=== PATIENT | male | born 2000 | race Caucasian/White ===

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

== ENCOUNTER 2021-07-25 10:02 | Emergency (ER) | payer OTHER ==
[~2021-07-25] VITALS: Ht 170.2 cm; Wt 68.9 kg
[2021-07-25 10:09] VITALS: BP 136/70
--- NOTE | 2021-07-25 10:16 | NUR ---
PATIENT AMBULATED TO BED 3, STEADY GAIT
--- NOTE | 2021-07-25 10:21 | NUR ---
DOCTOR CERON AT BEDSIDE
[2021-07-25] MEDS ORDERED: KETOROLAC 60 MG/2 ML VIAL IM ONE (10:25)
[2021-07-25] MEDS ORDERED: IBUP-2213 PO (10:34)
[2021-07-25] MEDS ORDERED: PRED20TA5 PO (10:34)
--- NOTE | 2021-07-25 10:42 | NUR ---
Patient discharged with v/s stable. Written and verbal after care instructions given and explained. Patient alert, oriented and verbalized understanding of instructions. Ambulatory with steady gait. All questions addressed prior to discharge. ID band removed. Patient advised to follow up with PMD. Rx of IBUPROFEN, PREDNISONE given. Patient educated on indication of medication including possible reaction and side effects. Opportunity to ask questions provided and answered.
[2021-07-25 10:44] VITALS: BP 136/70
== END 2021-07-25 10:42 | disposition home or self-care (01) ==
LOC: MED 10:02
DX: J02.9 Acute pharyngitis, unspecified (principal)
CPT/HCPCS: 96372; 99283; J1885

== ENCOUNTER 2022-02-11 12:12 | Emergency (ER) | payer OTHER ==
[~2022-02-11] VITALS: Ht 172.7 cm; Wt 70.3 kg
[~2022-02-11 12:12] MED LIST: IBUP-2213 PO; PRED20TA5 PO
[2022-02-11 12:26] VITALS: BP 117/80
--- NOTE | 2022-02-11 12:28 | NUR ---
PT TO BED 03 AMBULATORY
--- NOTE | 2022-02-11 12:30 | NUR ---
21/M WALKED IN C/O COUGH, SORE THROAT AND FEVER ONSET LAST NIGHT. DENIES SOB OR CHEST PAIN. PMH: DENIES
--- NOTE | 2022-02-11 12:46 | NUR ---
SWABS COLLECTED AND TAKEN TO LAB
[2022-02-11 12:48] VITALS: BP 113/76
[2022-02-11] MEDS ORDERED: KETOROLAC 30 MG/ML VIAL IM ONE (13:00)
--- NOTE | 2022-02-11 13:50 | NUR ---
STREP SWAB COLLECTED AND SENT TO LAB
[2022-02-11] MEDS ORDERED: TAM75 PO (14:20)
[2022-02-11] MEDS ORDERED: IBUP-1842 PO (14:21)
--- NOTE | 2022-02-11 14:25 | NUR ---
Patient discharged with v/s stable. Written and verbal after care instructions given and explained. Patient verbalized understanding. Ambulatory with steady gait. All questions addressed prior to discharge. Advised to follow up with PMD.
== END 2022-02-11 14:25 | disposition home or self-care (01) ==
LOC: MED 12:12
DX: J10.1 Influenza due to other identified influenza virus with other respiratory manifestations (principal); Z20.822 Contact with and (suspected) exposure to COVID-19; Z79.899 Other long term (current) drug therapy
CPT/HCPCS: 87081; 87426; 87804; 96372; 99283; J1885

== ENCOUNTER 2022-12-20 08:09 | Emergency (ER) | payer OTHER ==
[~2022-12-20] VITALS: Ht 170.2 cm; Wt 72.6 kg
[~2022-12-20 08:09] MED LIST changes: +IBUP-1842 PO; +TAM75 PO
[2022-12-20 08:23] VITALS: BP 162/77; PULSE 103; RESP 18; TEMP 100.1; O2SAT 96
[2022-12-20] MEDS ORDERED: KETOROLAC 60 MG/2 ML VIAL IM ONE (09:20)
[2022-12-20] MEDS ORDERED: PRED20TA5 PO (09:45)
[2022-12-20] MEDS ORDERED: IBUP-2213 PO (09:45)
== END 2022-12-20 09:58 | disposition home or self-care (01) ==
LOC: MED 08:09
DX: J02.9 Acute pharyngitis, unspecified (principal); H92.03 Otalgia, bilateral; R05.9 Cough, unspecified; Z79.899 Other long term (current) drug therapy; Z79.1 Long term (current) use of non-steroidal anti-inflammatories (NSAID)
CPT/HCPCS: 96372; 99283; J1885

== ENCOUNTER 2023-04-02 11:15 | Emergency (ER) | payer OTHER ==
[~2023-04-02] VITALS: Ht 170.2 cm; Wt 69.4 kg
[2023-04-02 12:08] VITALS: BP 116/72; PULSE 94; RESP 16; TEMP 98.6; O2SAT 95
[2023-04-02] MEDS ORDERED: PENICILLIN G BENZATHINE L-A 1.2 MU/2 ML SYR IM ONE (13:05)
[2023-04-02] MEDS ORDERED: KETOROLAC 60 MG/2 ML VIAL IM ONE (13:05)
[2023-04-02] MEDS ORDERED: PRED20TA5 PO (13:14)
[2023-04-02] MEDS ORDERED: IBUP-2213 PO (13:17)
[2023-04-02 13:28] VITALS: BP 121/72; PULSE 88; RESP 16; TEMP 98.6; O2SAT 97
== END 2023-04-02 13:28 | disposition home or self-care (01) ==
LOC: MED 11:15
DX: J02.0 Streptococcal pharyngitis (principal); H92.03 Otalgia, bilateral; Z79.899 Other long term (current) drug therapy
CPT/HCPCS: 87081; 96372; 99284; J0561; J1885

== ENCOUNTER 2023-07-10 08:53 | Emergency (ER) | payer OTHER ==
[~2023-07-10] VITALS: Ht 170.2 cm; Wt 68.5 kg
[2023-07-10 08:56] VITALS: BP 117/66; PULSE 86; RESP 19; TEMP 100.3; O2SAT 98
[2023-07-10] MEDS: KETOROLAC 60 MG/2 ML VIAL IM ONE (09:39)
== END 2023-07-10 10:01 | disposition home or self-care (01) ==
LOC: MED 08:53
DX: J02.9 Acute pharyngitis, unspecified (principal); R05.9 Cough, unspecified; R51.9 Headache, unspecified; R50.9 Fever, unspecified; Z79.899 Other long term (current) drug therapy
CPT/HCPCS: 96372; 99283; J1885

== ENCOUNTER 2023-10-31 08:47 | Emergency (ER) | payer OTHER ==
[~2023-10-31] VITALS: Ht 170.2 cm; Wt 69.9 kg
[2023-10-31 09:07] VITALS: BP 131/79; PULSE 107; RESP 18; TEMP 100.6; O2SAT 99
[2023-10-31] MEDS: IBUPROFEN 600 MG TAB PO ONE (10:03)
[2023-10-31 11:14] LABS: FLU A ANTIGEN negative (NEGATIVE)
[2023-10-31 11:20] LABS: FLU B ANTIGEN POSITIVE (NEGATIVE)
[2023-10-31] MEDS: PENICILLIN G BENZATHINE L-A 1.2 MU/2 ML SYR IM ONE (11:38)
== END 2023-10-31 11:46 | disposition home or self-care (01) ==
LOC: MED 08:47
DX: J02.0 Streptococcal pharyngitis (principal); J10.1 Influenza due to other identified influenza virus with other respiratory manifestations; Z20.822 Contact with and (suspected) exposure to COVID-19; Z79.1 Long term (current) use of non-steroidal anti-inflammatories (NSAID); Z79.899 Other long term (current) drug therapy
CPT/HCPCS: 71045; 87081; 87426; 87804; 96372; 99284; J0561; Q0092

== ENCOUNTER 2023-11-20 08:31 | Emergency (ER) | payer OTHER ==
[~2023-11-20] VITALS: Ht 170.2 cm; Wt 68.9 kg
[2023-11-20 08:36] VITALS: BP 121/84; PULSE 72; RESP 16; TEMP 98; O2SAT 98
[2023-11-20] MEDS ORDERED: DIPH25TA53 PO (08:57)
[2023-11-20] MEDS ORDERED: HYDR28OI3 TP (08:57)
[2023-11-20 09:00] VITALS: BP 121/84; PULSE 72; RESP 16; TEMP 98; O2SAT 98
== END 2023-11-20 09:00 | disposition home or self-care (01) ==
LOC: MED 08:31
DX: H57.89 Other specified disorders of eye and adnexa (principal); R21 Rash and other nonspecific skin eruption; Z79.1 Long term (current) use of non-steroidal anti-inflammatories (NSAID); Z79.899 Other long term (current) drug therapy
CPT/HCPCS: 99282

== ENCOUNTER 2023-12-21 10:24 | Emergency (ER) | payer OTHER ==
[~2023-12-21] VITALS: Ht 170.2 cm; Wt 70.8 kg
[~2023-12-21 10:24] MED LIST changes: +DIPH25TA53 PO; +HYDR28OI3 TP
[2023-12-21 10:50] VITALS: BP 122/86; PULSE 60; RESP 17; TEMP 98.3; O2SAT 98
[2023-12-21] MEDS ORDERED: OLOP2.5D7 OP (10:53)
[2023-12-21 10:59] VITALS: BP 122/86; PULSE 60; RESP 17; TEMP 98.3; O2SAT 98
== END 2023-12-21 10:58 | disposition home or self-care (01) ==
LOC: MED 10:24
DX: H10.13 Acute atopic conjunctivitis, bilateral (principal); Z79.1 Long term (current) use of non-steroidal anti-inflammatories (NSAID); Z79.899 Other long term (current) drug therapy
CPT/HCPCS: 99282

== ENCOUNTER 2024-02-16 20:19 | Emergency (ER) | payer OTHER ==
[~2024-02-16] VITALS: Ht 170.2 cm; Wt 71.7 kg
[~2024-02-16 20:19] MED LIST changes: +OLOP2.5D7 OP
[2024-02-16 20:28] VITALS: BP 118/72; PULSE 72; RESP 16; TEMP 98; O2SAT 98
[2024-02-16] MEDS ORDERED: DOXY-690 PO (22:08)
[2024-02-16] MEDS: DOXYCYCLINE 100 MG CAP PO ONE (23:06)
== END 2024-02-16 23:07 | disposition home or self-care (01) ==
LOC: MED 20:19
DX: L03.116 Cellulitis of left lower limb (principal); Z79.899 Other long term (current) drug therapy
CPT/HCPCS: 99283